=== PATIENT | female | born 1985 | race Caucasian/White ===

== ENCOUNTER 2018-04-30 19:18 | Emergency (ER) | payer MEDICAID ==
[~2018-04-30] VITALS: Ht 157.5 cm; Wt 85.5 kg
[~2018-04-30 19:18] MED LIST: IBUP-1223 PO
[2018-04-30 19:21] VITALS: BP 109/79
== END 2018-04-30 20:09 | disposition home or self-care (01) ==
LOC: ED 19:56
DX: S90.31XA Contusion of right foot, initial encounter (principal); W22.03XA Walked into furniture, initial encounter; Y93.89 Activity, other specified; Y92.009 Unspecified place in unspecified non-institutional (private) residence as the place of occurrence of the external cause; Y99.8 Other external cause status
CPT/HCPCS: 99283

== ENCOUNTER 2018-09-28 19:02 | Emergency (ER) | payer MEDICAID ==
[~2018-09-28] VITALS: Ht 157.5 cm; Wt 88.1 kg
--- NOTE | 2018-09-28 19:18 | NUR ---
pt to room from triage with c/o headache in nad at this time
[2018-09-28] MEDS ORDERED: ACETAMINOPHEN 500 MG TABLET ONE (19:26)
[2018-09-28] MEDS ORDERED: KETOROLAC 30 MG/1 ML ONE (19:26)
[2018-09-28] MEDS ORDERED: DIPHENHYDRAMINE 50 MG/ML, 1ML ONE (19:26)
[2018-09-28] MEDS ORDERED: PROCHLORPERAZINE 5 MG/ML, 2ML ONE (19:26)
[2018-09-28] MEDS ORDERED: KETOROLAC 30 MG/1 ML IVPush ONE (19:30)
[2018-09-28] MEDS ORDERED: ACETAMINOPHEN 500 MG TABLET PO ONE (19:30)
[2018-09-28] MEDS ORDERED: PROCHLORPERAZINE 5 MG/ML, 2ML IVPush ONE (19:30)
[2018-09-28] MEDS ORDERED: DIPHENHYDRAMINE 50 MG/ML, 1ML IVPush ONE (19:30)
[2018-09-28] MEDS ORDERED: SODIUM CHLORIDE 0.9% 1,000ML IVBOLUS ONE (19:30)
--- NOTE | 2018-09-28 19:57 | NUR ---
NEDICATED AT THIS TIME
[2018-09-28 20:01] LABS: BASOPHILS # (AUTO) 0.05 x10^3/uL (0-0.1); BASOPHILS % (AUTO) 0 % (0-1); EOSINOPHILS # (AUTO) 0.15 x10^3/uL (0-0.4); EOSINOPHILS % (AUTO) 2 % (1-7); LYMPHOCYTES # (AUTO) 4.12 x10^3/uL (1-3.4); LYMPHOCYTES % (AUTO) 40 % (22-44); MD NO; MEAN CORPUSCULAR HEMOGLOBIN 31.7 pg (27.0-34.8); MEAN CORPUSCULAR HGB CONC 33.2 g/dL (32.4-35.8); MEAN CORPUSCULAR VOLUME 95.5 fL (80-100); MEAN PLATELET VOLUME 8.6 fL (7.4-10.4); MONOCYTES # (AUTO) 0.55 x10^3/uL (0.2-0.8); MONOCYTES % (AUTO) 5 % (2-9); NEUTROPHILS # (AUTO) 5.35 x10^3/uL (1.8-6.8); NEUTROPHILS % (AUTO) 52 % (42-75); PLATELET COUNT 299 x10^3/uL (130-400); RED BLOOD COUNT 4.93 x10^6/uL (3.82-5.3); RED CELL DISTRIBUTION WIDTH 12.6 % (9.6-15.2)
[2018-09-28 20:11] LABS: ALBUMIN 3.8 g/dL (3.4-5.0); ANION GAP 6 mmol/L (5-15); CALCIUM 8.7 mg/dL (8.5-10.1); CHLORIDE 110 mmol/L (98-107); CREATININE 1.01 mg/dL (0.55-1.02)
--- NOTE | 2018-09-28 20:55 | NUR ---
PT STATES FEELS BETTER DENIES PAIN
--- NOTE | 2018-09-28 21:49 | NUR ---
Assist RN: patient discharged with prescription and instruction. verbalized understanding.
[2018-09-28 21:50] VITALS: BP 121/75
== END 2018-09-28 21:52 | disposition home or self-care (01) ==
LOC: ED 20:06
DX: G43.909 Migraine, unspecified, not intractable, without status migrainosus (principal)
CPT/HCPCS: 36415; 80048; 82040; 85025; 96374; 96375; 99283; J0780; J1200; J1885

== ENCOUNTER 2018-11-28 19:28 | Emergency (ER) | payer MEDICAID ==
[~2018-11-28] VITALS: Ht 157.5 cm; Wt 90.1 kg
[2018-11-28 19:54] VITALS: BP 120/86
== END 2018-11-28 21:57 | disposition left against medical advice (07) ==
LOC: ED 21:50
DX: R51 Headache (principal); Z53.21 Procedure and treatment not carried out due to patient leaving prior to being seen by health care provider

== ENCOUNTER 2020-04-19 16:50 | Emergency (ER) | payer MEDICAID ==
[~2020-04-19] VITALS: Ht 157.5 cm; Wt 93.3 kg
[2020-04-19 16:55] VITALS: BP 117/81
[2020-04-19 17:25] LABS: BASOPHILS % (AUTO) 1 % (0-1); EOSINOPHILS % (AUTO) 2 % (1-7); LYMPHOCYTES % (AUTO) 35 % (22-44); MEAN CORPUSCULAR HEMOGLOBIN 30.7 pg (27.0-34.8); MEAN CORPUSCULAR HGB CONC 33.8 g/dL (32.4-35.8); MEAN PLATELET VOLUME 8.2 fL (7.4-10.4); MONOCYTES % (AUTO) 5 % (2-9); NEUTROPHILS % (AUTO) 57 % (42-75); PLATELET COUNT 294 x10^3/uL (130-400); RED BLOOD COUNT 4.84 x10^6/uL (3.82-5.3)
[2020-04-19 17:31] LABS: MD NO
[2020-04-19 17:32] LABS: ALANINE AMINOTRANSFERASE 27 U/L (12-78); ALBUMIN 3.9 g/dL (3.4-5.0); ANION GAP 7 mmol/L (5-15); CALCIUM 9.1 mg/dL (8.5-10.1); CHLORIDE 109 mmol/L (98-107); CREATININE 0.93 mg/dL (0.55-1.02)
[2020-04-19 17:37] LABS: ALKALINE PHOSPHATASE 64 U/L (45-117); BILIRUBIN,TOTAL 0.2 mg/dL (0.2-1.0); TOTAL PROTEIN 7.9 g/dL (6.4-8.2); TROPONIN I < 0.015 ng/mL (0.000-0.045)
--- NOTE | 2020-04-19 20:28 | NUR ---
D/c instructions given. All questions and concerns addressed. Patient ambulatory with a steady gait. Belongings with patient.
== END 2020-04-19 20:30 | disposition home or self-care (01) ==
LOC: ED 19:45
DX: R07.89 Other chest pain (principal); R06.02 Shortness of breath; G43.909 Migraine, unspecified, not intractable, without status migrainosus
CPT/HCPCS: 36415; 80053; 84484; 84703; 85025; 93005; 99284

== ENCOUNTER 2021-01-18 18:29 | Emergency (ER) | payer MEDICAID ==
[~2021-01-18] VITALS: Ht 154.9 cm; Wt 96.0 kg
[2021-01-18 19:12] VITALS: BP 125/77
[2021-01-18] MEDS ORDERED: ACETAMINOPHEN 500 MG TABLET PO ONE (21:30)
[2021-01-18] MEDS ORDERED: DIPHENHYDRAMINE 25 MG CAPSULE ONE (21:30)
[2021-01-18] MEDS ORDERED: KETOROLAC 30 MG/1 ML IM ONE (21:30)
[2021-01-18] MEDS ORDERED: KETOROLAC 30 MG/1 ML ONE (21:30)
[2021-01-18] MEDS ORDERED: DIPHENHYDRAMINE 25 MG CAPSULE PO ONE (21:30)
[2021-01-18] MEDS ORDERED: PROCHLORPERAZINE 5 MG/ML, 2ML ONE (21:30)
[2021-01-18] MEDS ORDERED: PROCHLORPERAZINE 5 MG/ML, 2ML IM ONE (21:30)
[2021-01-18] MEDS ORDERED: ACETAMINOPHEN 500 MG TABLET ONE (21:30)
--- NOTE | 2021-01-18 21:46 | NUR ---
PT MEDICATED PER EMAR. AWAITING US. AT BEDSIDE.
== END 2021-01-18 23:03 | disposition home or self-care (01) ==
LOC: ED 21:06
DX: S80.02XA Contusion of left knee, initial encounter (principal); R51.9 Headache, unspecified; V89.2XXA Person injured in unspecified motor-vehicle accident, traffic, initial encounter; Y93.I9 Activity, other involving external motion; Y92.410 Unspecified street and highway as the place of occurrence of the external cause; Y99.8 Other external cause status; F17.200 Nicotine dependence, unspecified, uncomplicated
CPT/HCPCS: 73564; 93971; 96372; 99284; J0780; J1885; Q0163